=== PATIENT | female | born 2000 | race Caucasian/White ===

== ENCOUNTER 2025-09-06 15:58 | Emergency (ER) | payer OTHER, SELFPAY ==
[2025-09-06 16:06] VITALS: BP 179/122; BP 181/128; PULSE 75; RESP 20; TEMP 36.9; O2SAT 99; BMI 34.9
[2025-09-06 16:21] LABS: Appearance Urine Clear (Clear)
--- NOTE | 2025-09-06 16:42 | ED_ITS ---
HPI - General Adult General Chief complaint: Abdominal Pain Stated complaint: Abdominal pain Time Seen by Provider: 09/06/25 16:42 History of Present Illness HPI narrative: Pt reports ongoing epigastric pain that wraps to her back. This pain is intermittent and has been ongoing for a few months. Gets nauseous with these episodes as well. Rates pain 7/10 when present. 24-year-old young woman presenting to the emergency depart with concern of abdominal pain. She describes it as epigastric pain that wraps around both sides into her back and when more intense she will also feel in her lower abdomen gesturing to suprapubic area. No dysuria frequency. She can get nauseated with this as well. Does not seem to correlate it with eating. Can last a few hours or more briefly. Has been going on for couple 3 months. Denies a family history of gallbladder disease. Does not seem to be able to affect her pain although sitting up when it has recently flared would be worse. No shortness of breath or chest pain otherwise. Does not volunteer much in information/inquiry. Related Data Previous Rx's ?Medication ?Instructions ?Recorded omeprazole 40 mg capsule,delayed 40 mg PO DAILY #15 ca ps 09/06/25 release Allergies Allergy/AdvReac Type Severity Reaction Status Date / Time No Known Drug Allergies Allergy Verified 09/06/25 16:10 Review of Systems Status of ROS: Reports: 6 or more systems reviewed and unremarkable except as noted in History and below [facility] Social History Smoking Status: Former smoker How often do you have a drink containing alcohol: never AUDIT-C Alcohol total score: 0 Non-prescribed substance use: denies use Exam Narrative: Exam Narrative: Pleasant. Quiet. Seems a little uncomfortable. Skin is warm and dry. No rashes are noted. No discomfort to percussion of the flanks. Abdomen is soft and not exactly tender to palpation through the upper quadrants or epigastrium although after, during palpation says that pain is starting to build again. No pain to palpation lower abdomen. Abdomen otherwise overweight. Extremities well perfused without edema. Lungs are clear. Heart in regular rate and rhythm. Const: Vital Signs, click to edit/add: Vital Signs - 24 hr 09/06/25 16:06 Temperature 98.4 F Pulse Rate [Pulse Oximeter] 75 Respiratory Rate 20 Blood Pressure [Le ft Upper Arm] 181/128 H Blood Pressure [Ri ght Upper Arm] 179/122 H Pulse Oximetry 99 Oxygen Delivery Me thod Room Air Documenting provider has reviewed patient's vital signs: yes Course Vital Signs Vital signs: Initial Vital Signs Temperature 98.4 F 09/06/25 16:06 Temperature Source Temporal Artery Scan 09/06/25 16:06 Pulse Rate 75 09/06/25 16:06 Respiratory Rate 20 09/06/25 16:06 Blood Pressure 179/122 H 09/06/25 16:06 Blood Pressure Mean 141 H 09/06/25 16:06 Blood Pressure Position Sitting 09/06/25 16:06 Pulse Oximetry 99 09/06/25 16:06 Oxygen Delivery Method Room Air 09/06/25 16:06 Vital Signs Temperature 98.4 F 09/06/25 16:06 Pulse Rate 75 09/06/25 16:06 Respiratory Rate 20 09/06/25 16:06 Blood Pressure 179/122 H 09/06/25 16:06 Pulse Oximetry 99 09/06/25 16:06 Oxygen Delivery Method Room Air 09/06/25 16:06 Temperature 98.4 F 09/06/25 16:06 Pulse Rate 75 09/06/25 19:03 Respiratory Rate 14 09/06/25 19:03 Blood Pressure 149/97 H 09/06/25 19:03 Pulse Oximetry 99 09/06/25 19:03 Oxygen Delivery Method Room Air 09/06/25 19:03 Medications Administered Medications: Discontinued Medications Generic Name Dose Route Start Last Admin Trade Name Freq PRN Reason Stop Dose Admin Omeprazole 40 mg 09/06/25 19:12 09/06/25 19:18 Omeprazole [address] PO 09/06/25 19:13 40 mg ONCE ONE Administration Medical Decision Making MDM Narrative Medical decision making narrative: Would be suspicious of gallbladder disease here. Less likely pancreatitis. Unlikely vascular dissection. Does not appear to have symptoms otherwise that might suggest pneumonia. Differential includes gastritis, gastric ulcer, duodenal ulcer, GERD. Urinary tract infection . Initial blood pressure is rather elevated. 149/97 prior to departure. Labs pending but due to availability i did request limited abdominal ultrasound. Discussed findings purchase order checker. Essentially unremarkable. Noted hepatic s teatosis/fatty liver. Radiology over-read below INDICATION: Epigastric pain. COMPARISON: None. TECHNIQUE: Real time manriquez scale imaging and color Doppler analysis was performed of the right upper quadrant. FINDINGS: Liver: The liver measures 14.7 cm in length. Normal echogenicity. No focal liver lesions identified. Gallbladder: No stones or sludge. No wall thickening or pericholecystic fluid. Negative sonographic Dunham sign. Bile ducts: The common bile duct measures 3 mm in diameter. Pancreas: Normal where seen. Right kidney: The right kidney measures 10.2 cm in length. No hydronephrosis, calculus, or mass. Vascular: Normal caliber proximal abdominal aorta. The hepatic IVC appears patent. The main portal vein is patent with normal flow direction. IMPRESSION: Unremarkable exam. Dictated by Tere Mcclain MD @ 09/06/2025 7:12:19 PM Pain overall settled over time in emergency department without intervention. Labs were reassuring Did give a dose of omeprazole prior to departure. See patient discharge plan for further discussion I am not sure what is causing your pain but your labs and ultrasound are reassuring. I realize that Tums has not worked for you. You might try liquid antacid/anti- gas medication for flares of discomfort or perhaps famotidine; both of these are available [id number]. In the meantime though I would like you to try this prescription of an acid prior authorization nurse called omeprazole that I am sending into your pharmacy. You received a dose here as well. You may still have an issue with her gallbladder and I would like you to follow- up with primary care or possibly even General surgery to discuss this further. Return for marked increase in persistent pain, associated fever, repeated v omiting. Lab Data Lab results reviewed: Yes I reviewed the patient's lab results Labs: Lab Results 09/06/25 09/06/25 09/06/25 Range/Units 16:14 17:24 17:34 WBC 8.83 (4.50-11.00) K/uL RBC 5.01 (4.00-5.20) m/uL Hgb 13.2 (12.0-16.0) gm/dL Hct 40.3 (33.0-51.0) % MCV 80 (80-100) fL MCH 26 (26-34) pg MCHC 33 (32-36) gm/dL RDW Coeff of Robert 12.7 (11.5-15.5) % Plt Count 292 (140-440) K/uL Neut % (Auto) 62.4 (42.0-72.0) % Lymph % (Auto) 28.4 (20-44) % Mcminn % (Auto) 7.7 (0.0-11.0) % Eos % (Auto) 1.1 (0.0-7.0) % Baso % (Auto) 0.2 (0.0-3.0) % Neut # (Auto) 5.50 (1.7-7.0) K/uL Lymph # (Auto) 2.51 (0.90-2.90) K/uL Mcminn # (Auto) 0.70 (0.00-0.90) K/UL Eos # (Auto) 0.10 (0.00-0.50) K/uL Baso # (Auto) 0.02 (0.00-0.30) K/uL Abs Immat Gran (auto) 0.02 (0.00-0.30) K/uL Imm/Tot Granulo (auto) 0.2 % D-Dimer Quant (PE/DVT) < 0.27 (0.00-0.50) ug/ml Sodium 136 (135-149) mmol/L Potassium 3.7 (3.6-5.1) mmol/L Chloride 99 (96-114) mmol/L Carbon Dioxide 28 (20-32) mmol/L Anion Gap 9 (7-15) mEq/L BUN 10 (5-24) mg/dL Creatinine 0.7 (0.5-1.5) mg/dL Estimated Creat Clear 103.40 Estimated GFR 125 ml/min Glucose 98 (60-115) mg/dL Calcium 8.9 (8.4-10.6) mg/dL Total Bilirubin 0.5 (0.1-1.5) mg/dL Direct Bilirubin 0.3 (0.0-0.5) mg/dL AST 36 H (12-35) U/L ALT 24 (4-35) U/L Alkaline Phosphatase 120 (40-150) U/L C-Reactive Protein 1.1 H (0.5-1.0) mg/dL Total Protein 8.9 H (6.0-8.3) g/dL Albumin 4.7 (3.3-5.0) g/dL Lipase 91 (23-300) U/L Urine Color Yellow (Yellow) Urine Appearance Clear (Clear) Urine pH 7.0 (5.0-8.5) Ur Specific [place]wood 1.020 (1.000-1.030) Urine Protein Negative (Negative) Urine Glucose (UA) Negative (Negative) Urine Ketones Negative (Negative) Urine Blood Negative (Negative) Urine Nitrite Negative (Negative) Urine Bilirubin Negative (Negative) Urine Urobilinogen 0.2 (0.2-1.0) Ur Leukocyte Esterase Negative (Negative) Urine RBC 0-2 (0-2) Urine WBC 0-2 (0-5) Ur Squamous Epith Cells Few (None-Few) Urine Bacteria None (None) Urine HCG, Qual Negative (Negative) Lab Acknowledgement Test Added 09/06/25 Range/Units 17:44 WBC (4.50-11.00) K/uL RBC (4.00-5.20) m/uL Hgb (12.0-16.0) gm/dL Hct (33.0-51.0) % MCV (80-100) fL MCH (26-34) pg MCHC (32-36) gm/dL RDW Coeff of Robert (11.5-15.5) % Plt Count (140-440) K/uL Neut % (Auto) (42.0-72.0) % Lymph % (Auto) (20-44) % Mcminn % (Auto) (0.0-11.0) % Eos % (Auto) (0.0-7.0) % Baso % (Auto) (0.0-3.0) % Neut # (Auto) (1.7-7.0) K/uL Lymph # (Auto) (0.90-2.90) K/uL Mcminn # (Auto) (0.00-0.90) K/UL Eos # (Auto) (0.00-0.50) K/uL Baso # (Auto) (0.00-0.30) K/uL Abs Immat Gran (auto) (0.00-0.30) K/uL Imm/Tot Granulo (auto) % D-Dimer Quant (PE/DVT) (0.00-0.50) ug/ml Sodium (135-149) mmol/L Potassium (3.6-5.1) mmol/L Chloride (96-114) mmol/L Carbon Dioxide (20-32) mmol/L Anion Gap (7-15) mEq/L BUN (5-24) mg/dL Creatinine (0.5-1.5) mg/dL Estimated Creat Clear Estimated GFR ml/min Glucose (60-115) mg/dL Calcium (8.4-10.6) mg/dL Total Bilirubin (0.1-1.5) mg/dL Direct Bilirubin (0.0-0.5) mg/dL AST (12-35) U/L ALT (4-35) U/L Alkaline Phosphatase (40-150) U/L C-Reactive Protein (0.5-1.0) mg/dL Total Protein (6.0-8.3) g/dL Albumin (3.3-5.0) g/dL Lipase (23-300) U/L Urine Color (Yellow) Urine Appearance (Clear) Urine pH (5.0-8.5) Ur Specific Norwood (1.000-1.030) Urine Protein (Negative) Urine Glucose (UA) (Negative) Urine Ketones (Negative) Urine Blood (Negative) Urine Nitrite (Negative) Urine Bilirubin (Negative) Urine Urobilinogen (0.2-1.0) Ur Leukocyte Esterase (Negative) Urine RBC (0-2) Urine WBC (0-5) Ur Squamous Epith Cells (None-Few) Urine Bacteria (None) Urine HCG, Qual (Negative) Lab Acknowledgement Test Added Discharge Plan Discharge Clinical Impression: Colicky epigastric pain Patient Disposition: Home w/ Parent or Adult Additional Instructions: I am not sure what is causing your pain but your labs and ultrasound are reassuring. I realize that Tums has not worked for you. You might try liquid antacid/anti- gas medication for flares of discomfort or perhaps famotidine; both of these are available [id number]. In the meantime though I would like you to try this prescription of an acid prior authorization nurse called omeprazole that I am sending into your pharmacy. You received a dose here as well. You may still have an issue with her gallbladder and I would like you to follow- up with primary care or possibly even General surgery to discuss this further. Return for marked increase in persistent pain, associated fever, repeated vomiting. Prescriptions: New omeprazole 40 mg capsule,delayed release(DR/EC) 40 mg PO DAILY Qty: 15 0RF Follow Up/Referrals: Provider,Not a Local [Primary Care Provider, Family Practice] Stand Alone Forms: BFKWth Info Instructions
--- OUTSIDE RECORDS SUMMARY | 2025-09-06 17:06 | XMS_ITS | Clinical Summary ---
Author Organization [facility] Address [address] [place] [address] Care Team Providers Care Gang Knife Fish Chopper Name Role Phone Unavailable Primary Care Provider Unavailabl e Source Comments You are receiving this document as you are listed as the primary care provider,follow-up provider, or the patient has been referred to you for consultation.This is in compliance with the Medicare andMedicaid EHR Incentive Program,which states Providers who transition their patient to another setting of careor provider of care or refers their patient to another provider of care shouldprovide summary care record for each transition of care or referral. [facility] Allergies No known active allergies Medications No known medications Active Problems Problem Noted Date Diagnosed Date Cysts of both ovaries 05/07/2024 Social History Tobacco Use Types Packs/Day Years Used Date Smoking Tobacco: Never Smokeless Tobacco: Never Tobacco Cessation:Counseling Given: Not Answered Comments No Sex and Gender Information Value Date Recorded Sex Assigned at Not on file Legal Sex Female 9:43 AM CDT Gender Identity Not on file Sexual Orientation Not on file Last Filed Vital Signs Vital Sign Reading Time Taken Comments Blood Pressure 160/100 05/07/2024 9:58 AM CDT Pulse 72 05/07/2024 9:58 AM CDT Temperature 36.8 C (98.2 F) 05/07/2024 9:58 AM CDT Respiratory Rate 12 05/07/2024 9:58 AM CDT Oxygen Saturation 100% 05/07/2024 9:58 AM CDT Inhaled Oxygen Concentration - - Weight - - Height - - Body Mass Index - - Plan of Treatment Health Maintenance Due Date Last Done Comments Cervical Cancer Screening Due 2001 Chlamydia 2001 Hep C Screening (Preventive Services) 2001 MenB Immunization Discussion 2001 HIV Screening (Preventive Services) 2017 Adult Preventive Visit 2019 HepB Vaccine (1) 2020 DTaP/Tdap/Td Vaccine (7 - Tdap) 03/28/2024 03/28/2014, 08/30/2006, 03/11/2003, Additional history exists COVID-19 Vaccine (3 - season) 2025 05/27/2021, 04/29/2021 Influenza Vaccine (#1) 2025 , 12/06/2011, 12/22/2010, Additional history exists Zoster/Shingles Vaccine (1 of 2) 2051 Pneumococcal Vaccine Aged Out 09/13/2002, 06/14/2002, 01/30/2002 No longer eligible based on patient's age to complete this topic Hib Vaccine Completed 12/13/2002, 04/14, 01/30/2002 IPV (Polio) Vaccine Completed 08/30/2006, 09/13/2002, 04/26/2002, Additional history exists HepA Vaccine Completed 03/28/2014, 02/09/2011 HPV Vaccine Completed 09/12/2020, 03/28/2014 MCV4 Vaccine Completed 09/12/2020, 03/28/2014
--- OUTSIDE RECORDS SUMMARY | 2025-09-06 17:06 | XMS_ITS | Clinical Summary ---
Author Organization [facility] Address [address] [place] [id number] Care Team Providers Care Channel Installer Name Role Phone No Ref-Primary, Physician Primary Care Provider Jossue James MD Unavailable [phone] Allergies No known active allergies Medications No known medications Active Problems Problem Noted Date Diagnosed Date LGSIL of cervix of undetermined significance Overview (09/06/2024): 05/2024 LSIL (age 23) Plan: Pap due 05/2025 Cysts of both ovaries 05/07/2024 Polycystic ovary syndrome 09/12/2020 Overview (09/06/2024): Meets diagnostic criteria for PCOS based on hirsutism and secondary amenorrhea. Immunizations Immunization Administration Dates Next Due Comvax (HIB/HepB) 12/13/2002,04/26/2002,01/31/20 02 DTAP (<7y) 08/30/2006, 3,06/14/2002,04/26,01/30/2002 Flu, Unspecified 12/06/2011, 1,12/13/2002,09/13 HIB, Unspecified 12/13/2002,04/26/2002 HPV Quadrivalent 03/28/2014 HPV9 (Gardasil) 09/12/2020 HepA-Peds, Unspecified 02/09/2011 HepB, Unspecified 12/13/2002,04/26/2002 Hepatitis A (Vaqta/Havrix)(P eds 12m-18y) 03/28/2014,02/09/2011 Influenza Vaccine >6 months,quad, PF 09/12/2020 Influenza, Split Virus, Triv alent, Pf (Fluzone\Fluarix) 08/14/2024 MMR (MMRII) 08/30/2006,12/13/2002 Meningococcal ACWY (Menactra ) 09/12/2020 Meningococcal ACWY (Menveo ) 03/28/2014 Pneumococcal (PCV 7) 09/13/2002,06/14/2002,01/30 Polio, Unspecified 08/30/2006,09/13/2002, 002 Poliovirus, inactivated (IPV) 08/30/2006 ,09/13/2002,04/26/2002,01/30 TDAP (Adacel,Boostrix) 03/28/2014 Varicella (Varivax) 03/28/2014,12/13/2002 Family History Medical History Relation Comments Heart Disease Brother 1 ?heart failure - 30s Hypertension Father Breast Cancer Maternal Aunt in 40s Diabetes Type 2 Mother Autoimmune Disease No family hx of Colon Cancer No family hx of Ovarian Cancer No family hx of Relation Status Comments Brother 1 Alive Brother 2 Alive Father Alive Maternal Aunt Alive Maternal Grandfather Maternal Grandmother Mother Alive Paternal Grandfather Paternal Grandmother Sister Alive Social History Tobacco Use Types Packs/Day Years Used Date Smoking Tobacco: Never Smokeless Tobacco: Never Tobacco Cessation:Counseling Given: Not Answered PHQ-2 Answer Date Recorded PHQ-2 Score 3 09/06/2024 Food Insecurity Answer Date Recorded Within the past 12 months, d id you worry that your food would run out before you got money to buy more? No 1 Within the past 12 months, d id the food you bought just not last and you didn t have money to get more? Patient declined 09/06/2024 Housing Stability Answer Date Recorded Do you have housing? (Housin g is defined as stable permanent housing and does not include staying outside in a car, in a tent, in an abandoned building, in an overnight long-term, or couch-surfing.) Yes 09/06/2024 Are you worried about losing your housing? No 09/06/2024 Financial Resource Strain Answer Date R ecorded Within the past 12 months, h ave you or your family members you live with been unable to get utilities (heat, electricity) when it was really needed? No 09/06/2024 Transportation Needs Answer Date Record ed Within the past 12 months, h as lack of transportation kept you from medical appointments, getting your medicines, non-medical meetings or appointments, work, or from getting things that you need? No 09/06/2024 Interpersonal Safety Answer Date Record ed Do you feel physically and e motionally safe where you currently live? Yes 09/06/2024 Within the past 12 months, h ave you been hit, slapped, kicked or otherwise physically hurt by someone? No 09/06/2024 Within the past 12 months, h ave you been humiliated or emotionally abused in other ways by your partner or ex-partner? No 09/06/2024 Comments No Sex and Gender Information Value Date Recorded Sex Assigned at Not on file Legal Sex Female 4:17 PM CDT Gender Identity Not on file Sexual Orientation Not on file Last Filed Vital Signs Vital Sign Reading Time Taken Comments Blood Pressure 150/85 10/03/2024 9:28 AM POST MANAGER Pulse 80 10/03/2024 9:09 AM POST MANAGER Temperature 36.3 C (97.4 F) 10/03/2024 9:09 AM POST MANAGER Respiratory Rate 12 10/03/2024 9:09 AM POST MANAGER Oxygen Saturation 99% 10/03/2024 9:09 AM POST MANAGER Inhaled Oxygen Concentration - - Weight 82.5 kg (181 lb 14.4 oz) 10/03/2024 9:09 AM POST MANAGER Height 160 cm (5' 3) 10/03/2024 9:09 AM POST MANAGER Body Mass Index 32.22 10/03/2024 9:09 AM POST MANAGER Plan of Treatment Health Maintenance Due Date Last Done Comments ADVANCE CARE PLANNING 2001 ANNUAL REVIEW OF HM ORDERS 2001 MENINGITIS B VACCINE (1 of 2 - Standard) 2017 HEPATITIS C SCREENING 2019 CHLAMYDIA SCREENING 09/12/2021 09/12/2020 DTAP/TDAP/TD VACCINE (7 - Td or Tdap) 03/28/2024 03/28/2014, 08/30/2006, 03/11/2003, Additional history exists PHQ-2 (once per calendar year) 2024 09/06/2024, 09/06/2024 YEARLY PREVENTIVE VISIT 05/31/2025 05/31/2024, 09/12 COVID-19 VACCINE ( season) 2025 05/27/2021, 04/29/2021 INFLUENZA VACCINE (#1) 2025 , 09/12/2020, 12/06/2011, Additional history exists PAP 05/31/2027 05/31/2024 ZOSTER VACCINE (1 of 2) 2051 PNEUMOCOCCAL VACCINE: PEDIATRICS (0 to 5 YEARS) AND AT-RISK PATIENTS (6 to 49 YEARS) Aged Out 09/13/2002, 06/14/2002, 01/30/2002 No longer eligible based on patient's age to complete this topic HEPATITIS B VACCINE Completed 12/13/2002, 12/13/2002, 04/26/2002, Additional history exists HIV SCREENING Completed 09/12/2020 HPV VACCINE Completed 09/12/2020, 03/28/2014 MENINGITIS VACCINE Completed 09/12/2020, 03/28/2014 Insurance BCBS OUT OF STATE BCBS OUT OF STATE Care Teams Channel Installer Relationship Specialty Start Date End Date No Ref-Primary, Physician PCP - General 07/24/24 Jossue James MD [id number] [facility] [place] [id number] Assigned PCP 10/06/24
--- OUTSIDE RECORDS SUMMARY | 2025-09-06 17:06 | XMS_ITS | Clinical Summary ---
Author Organization [facility] Address [address] [place] [id number] Care Team Providers Care Rubber Belt Splicer Name Role Phone Mckenzie Levi NP Primary Care Provider [phone] Allergies No known active allergies Medications No known medications Active Problems Problem Noted Date Diagnosed Date LGSIL of cervix of undetermined significance Overview (06/08/2024): 05/2024 LSIL (age 23) Plan: Pap due 05/2025 Immunizations Immunization Administration Dates Next Due COVID-19 vaccine (Boundless NTMedyMatch 30mcg/0.3mL) NATIVIDAD LOYD 05/27/2021,04/29/2021 DTaP 08/30/2006, 3,06/14/2002,04/26,01/30/2002 HIB-HepB (Comvax) 01/30/2002 HPV 9 (Gardasil 9) 09/12/2020 Hepatitis A (Peds) 03/28/2014 Hepatitis A (Peds),Unspecified 02/09/2011 Hepatitis B, Unspecified 12/13/2002,04/26/2002 Hib Conjugate, Unspecified 12/13/2002,04/26/2002 Human Papilloma Virus Vaccine 03/28/2014 Inactivated Polio Vaccine 01/30/2002 Influenza Virus, Unspecified 12/06/2011, 12/22/2010,12/13/2002,09/13 Influenza, IIV4 09/12/2020 MENINGOCOCCAL VACCINE 2 VIAL 2MO-55YO (MENVEO) 03/28/2014 MMR 08/30/2006,12/13/2002 Meningococcal Vaccine (Menactra) 09/12/2020 Pneumococcal conj 7-Valent (Prevnar 7) 2,06/14/2002,01/30/2002 Polio Virus, Unspecified 08/30/2006,09/13/2002,0 04/26/2002 Tdap 03/28/2014 Varicella Vaccine 03/28/2014,12/13/2002 Social History Tobacco Use Types Packs/Day Years Used Date Smoking Tobacco: Never Smokeless Tobacco: Never Tobacco Cessation:Counseling Given: Not Answered Alcohol Use Standard Drinks/Week Comments Never 0 (1 standard drink = 0.6 oz pur e alcohol) PHQ-2 Answer Date Recorded PHQ-2 TOTAL SCORE 0 05/14/2024 Social Connections Answer Date Recorded Frequency of Communication with Friends and Fami ly Not on file 05/14/2024 Comments No Sex and Gender Information Value Date Recorded Sex Assigned at Not on file Legal Sex Female 6:25 AM [employer] Gender Identity Not on file Sexual Orientation Not on file Obstetrics History Para Term AB IAB SAB Ectopic Multiple Livin g Live Births 0 0 0 0 0 0 0 0 0 0 0 Last Filed Vital Signs Vital Sign Reading Time Taken Comments Blood Pressure 140/82 05/31/2024 10:31 AM CDT Pulse 78 05/31/2024 10:31 AM CDT Temperature 36.8 C (98.2 F) 11/25/2022 5:00 PM [employer] Respiratory Rate 14 11/25/2022 5:00 PM [employer] Oxygen Saturation 99% 11/25/2022 5:00 PM [employer] Inhaled Oxygen Concentration - - Weight 82.1 kg (181 lb) 05/31/2024 10:31 AM CDT Height 160 cm (5' 3) 05/31/2024 10:31 AM CDT Body Mass Index 32.06 05/31/2024 10:31 AM CDT Plan of Treatment Health Maintenance Due Date Last Done Comments HIV for age 15-65 2016 Chlamydia for age 16-24 2017 Hepatitis C screening for age 18-79 2019 Tetanus booster 03/28/2024 03/28/2014 Depression screening for age 12+ 05/14/2025 05/14/2024 BMI (ht and wt on same day) for age 18+ 05/31/2025 05/31/2024, 05/14/2024 Pap test for age 21-65 05/31/2025 05/31/2024 COVID-19 vaccine series ( - season) 2025 05/27/2021, 04/29/2021 Influenza Vaccine (#1) 2025 , 12/06/2011, 12/22/2010, Additional history exists RSV vaccine for adults or (1 - 1-dose 75+ series) 2076 Pneumococcal series for age 6-49 Aged Out 09/13/2002, 06/14/2002, 01/30/2002 No longer eligible based on patient's age to complete this topic Hepatitis B series for 19+ Completed 12/13, 04/26/2002, 01/30/2002 HPV series for age 9-45 Completed 09/12/2020, 03/28 Procedures Procedure Name Priority Date/Time Associated Diagnosis Comments [employer] THIN PREP PAP SCREEN IMAGED Routine 05/31/2024 10:41 AM CDT Screening for malignant neoplasm of cervix from Last 3 Months or Most Recently Relevant to Health Maintenance Results * (ABNORMAL) MOBI[employer] THIN PREP PAP SCREEN IMAGED (05/31/2024 10:41 AM CDT) Case Report Gynecologic Cytology Report Case: [id number] Authorizing Provider: Jayda Meléndez NP Collected: 05/31/2024 1041 Ordering Location: [facility] Received: 05/31/2024 [facility] First Screen: Kenyetta Dutton Pathologist: Nia Connors MD Specimen: MOBILE [employer] WORKER ThinPrep Vial Screening, Cervical 06/08/2024 3:21 PM CDT [facility] INTERPRETATION /RESULT LOW GRADE SQUAMOUS INTRAEPITHELIAL LESION (LSIL)(A) (none) 06/08/2024 3:21 PM CDT [facility]-C ENTRAL LABORATORY at 1521 CDT SPECIMEN ADEQUACY Satisfactory for evaluation Endocervical component present 06/08/2024 3:21 PM CDT [facility] Date of LMP 12-03-23 06/08/2024 3:21 PM CDT [facility] Last Pap Date First pap / unknown 06/08/2024 3:21 PM CDT [facility] Last Pap Result First Pap/Unknown 06/08/2024 3:21 PM CDT [facility] Abnormal Pap or [place] Bx in last 5 years No 06/08/2024 3:21 PM CDT [facility] Menstrual Status Irregular Periods 06/08/2024 3:21 PM CDT [facility] [place] Bx Done Today No 06/08/2024 3:21 PM CDT [facility] Additional Information None given 06/08/2024 3:21 PM CDT [facility] Comment: Cytology is screened at [facility] - [address], [place] [address] and [facility] - [address] [place] [address] and [facility] - [address] [place] [address] [facility] - [address], [place] [address] Automated Review Failed 06/08/2024 3:21 PM CDT [facility] Comment:Processing failed, m anual screening required. ThinPrep Imaging System, [employer] Note The pap test is a screening technique, not a diagnostic procedure. It is used primarily to screen for squamous cancers and precursor lesions. Published studies have shown that it is subject to both false negative and false positive results. The pap test should not be used as the sole means to diagnose or exclude pre-malignant and malignant lesions. 06/08/2024 3:21 PM CDT [facility] Other (Cervical) Non-Blood / Unknown 05/31/2024 10:41 AM CDT 05/31/2024 11:19 AM CDT us Jayda Meléndez NP PATHOLOGY/CYTOLOGY Lizzy barajas Result [facility] LABORAT[facility]-CENTRAL LABORATORY [address] [place] [address], from Last 3 Months or Most Recently Relevant to Health Maintenance Care Teams Rubber Belt Splicer Relationship Specialty Start Date End Date Mckenzie Levi NP [address] [id number] PCP - General Family Practice 11/25/22
[2025-09-06 17:53] LABS: Hematocrit* 40.3 % (33.0-51.0); Hemoglobin* 13.2 gm/dL (12.0-16.0); Immature Granulocytes Abs Auto 0.02 K/uL (0.00-0.30); Immature Granulocytes Pct Auto 0.2 %; Lymphocytes Absolute Auto 2.51 K/uL (0.90-2.90); Mean Corpuscular HGB Conc 33 gm/dL (32-36); Mean Corpuscular Hemoglobin 26 pg (26-34); Mean Corpuscular Volume 80 fL (80-100); RDW Coefficient of Variation % 12.7 % (11.5-15.5); Red Blood Count* 5.01 m/uL (4.00-5.20); White Blood Count* 8.83 K/uL (4.50-11.00)
[2025-09-06 17:54] LABS: Slide Review Reflex No
--- NOTE | 2025-09-06 18:17 | CRLHL7_ITS ---
For Patients: As a result of the Century Cures Act, medical imaging exams and procedure reports are released immediately into your electronic medical record. You may view this report before your referring provider. If you have questions, please contact your health care provider. INDICATION: Epigastric pain. COMPARISON: None. TECHNIQUE: Real time manriquez scale imaging and color Doppler analysis was performed of the right upper quadrant. FINDINGS: Liver: The liver measures 14.7 cm in length. Normal echogenicity. No focal liver lesions identified. Gallbladder: No stones or sludge. No wall thickening or pericholecystic fluid. Negative sonographic Dunham sign. Bile ducts: The common bile duct measures 3 mm in diameter. Pancreas: Normal where seen. Right kidney: The right kidney measures 10.2 cm in length. No hydronephrosis, calculus, or mass. Vascular: Normal caliber proximal abdominal aorta. The hepatic IVC appears patent. The main portal vein is patent with normal flow direction. IMPRESSION: Unremarkable exam. Dictated by Tere Mcclain MD @ 09/06/2025 7:12:19 PM (Electronically Signed)
[2025-09-06 18:22] LABS: Albumin* 4.7 g/dL (3.3-5.0); Chloride* 99 mmol/L (96-114); Sodium* 136 mmol/L (135-149)
[2025-09-06 18:23] LABS: Potassium* 3.7 mmol/L (3.6-5.1)
[2025-09-06 18:25] LABS: Blood Urea Nitrogen* 10 mg/dL (5-24); Creatinine* 0.7 mg/dL (0.5-1.5); Est. Creatinine Clearance* 103.40; Estimated Glomerular Filt Rate 125 ml/min
[2025-09-06 18:26] LABS: Alanine Aminotransferase* 24 U/L (4-35); Alkaline Phosphatase* 120 U/L (40-150); Anion Gap 9 mEq/L (7-15); Aspartate Amino Transferase* 36 U/L (12-35); Bilirubin Direct* 0.3 mg/dL (0.0-0.5); Bilirubin Total* 0.5 mg/dL (0.1-1.5); Calcium* 8.9 mg/dL (8.4-10.6); Carbon Dioxide* 28 mmol/L (20-32); Glucose* 98 mg/dL (60-115); Total Protein* 8.9 g/dL (6.0-8.3)
[2025-09-06 18:28] LABS: Ur HCG Qualitative* Negative (Negative)
[2025-09-06 18:41] LABS: D Dimer Quantitative* < 0.27 ug/ml (0.00-0.50)
[2025-09-06 19:03] VITALS: BP 149/97; PULSE 75; RESP 14; O2SAT 99
[2025-09-06] MEDS: OMEPRAZOLE 20 MG CAPSULE DR 40 MG PO (19:18)
== END 2025-09-06 19:25 | disposition home or self-care (01) ==
PROVIDERS: Emergency Provider Family Medicine
DX: R10.13 Epigastric pain (principal)
CPT/HCPCS: 36415; 76705; 80048; 80076; 81001; 81025; 83690; 85025; 85379; 86140; 99284; A9270